=== PATIENT | female | born 2000 | race Caucasian/White ===

== ENCOUNTER 2021-08-28 09:30 | Emergency (ER) | payer OTHER | END 2021-08-28 12:26 | disposition home or self-care (01) | LOC: JD.ED 09:30 | DX: R07.89 Other chest pain (principal); Z88.0 Allergy status to penicillin; Z91.09 Other allergy status, other than to drugs and biological substances | CPT/HCPCS: 36415; 80053; 84443; 84484; 85025; 93010; 99284; 99285 ==

== ENCOUNTER 2022-02-22 18:36 | Emergency (ER) | payer OTHER ==
[2022-02-22] MEDS ORDERED: Sodium Chloride 0.9% 10 ML Syringe FLUSH PRN (19:49)
[2022-02-22 20:37] LABS: ESTIMATED GFR 93 mL/min (>60)
[2022-02-22] MEDS ORDERED: Cephalexin 500 MG Cap PO ONE (20:54)
== END 2022-02-22 21:15 | disposition home or self-care (01) ==
LOC: JD.ED 18:36
DX: N30.01 Acute cystitis with hematuria (principal); Z88.1 Allergy status to other antibiotic agents; Z91.013 Allergy to seafood; Z79.899 Other long term (current) drug therapy
CPT/HCPCS: 36415; 80053; 81001; 81025; 83735; 85025; 86140; 87086; 99284; A9270; J3490; 99283